=== PATIENT | male | born 1990 | race American Indian/Alaskan Native ===

== ENCOUNTER 2018-03-28 12:02 | Emergency (ER) | payer OTHER, BC ==
[2018-03-28 12:09] VITALS: BP 132/88
[2018-03-28] MEDS ORDERED: FLEXERIL PO ONE (14:29)
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
[2018-03-28] MEDS ORDERED: TYLENOL #3 PO ONE (14:31)
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
== END 2018-03-28 17:43 | disposition home or self-care (01) ==
LOC: ED 12:02
DX: S06.9X9A Unspecified intracranial injury with loss of consciousness of unspecified duration, initial encounter (principal); M54.2 Cervicalgia; V43.52XA Car driver injured in collision with other type car in traffic accident, initial encounter; Y93.89 Activity, other specified; Y99.8 Other external cause status; Y92.410 Unspecified street and highway as the place of occurrence of the external cause
CPT/HCPCS: 70450; 72125; 99283